=== PATIENT | female | born 1955 | race Caucasian/White ===

== ENCOUNTER → 2017-04-14 | Outpatient (CLI) | payer MEDICARE, BC ==
[~2017-04-14] MED LIST: ALLEGRA; ALLEGRA ALLERG180 MG PO; ASPIRIN81 M2 PO; CALCIUM 500 + D1 TAB PO; CALCIUM 600 +1 EAC1 PO; CALCIUM500 M1 PO; CARAFATE1 GM; CRESTOR5 MG PO; DARVOCET-N 1001 TAB PO; DICLOFENAC; DYMISTA NASAL S23 GM; ESTRACE42.5 GM VAG; FLONASE16 GM; GAMMAGARD; GAS-X125 MG PO; LIDOCAINE1 EACH; MESTINON; MESTINON180 MG PO; MESTINON60 MG/5 ML PO; MINIVELLE1 EAC3 TD; MULTI-VITAMIN1 TAB; MULTIPLE VITAM1 EAC1 PO; MYLANTA125 MG PO; OYSTER CALCIUM500 MG; PLAQUENIL200 MG; PLAQUENIL200 MG PO; PROBIOTIC1 EAC3 PO; PROBIOTIC1 EAC5 PO; PROTONIX PO; PROVENTIL; PULMICORT0.25 MG/2 INH; PULMICORT180 MCG/A1 INH; PULMICORT200 MCG/AE; PULMICORT200 MCG/AE INH; PYRIDOSTIGMINE180 MG PO; PYRIDOSTIGMINE60 M2 PO; RESTASIS1 EACH; SINGULAIR PO; TYLENOL PM; VESICARE; VESICARE5 MG PO; VITAMIN D PO; VITAMIN D250000 UNIT PO; VITAMIN D50000 UNIT PO; VOLTAREN75 MG PO
== END | disposition home or self-care (01) ==
LOC: CSSDAY 07:39
DX: G70.00 Myasthenia gravis without (acute) exacerbation (principal); Z79.899 Other long term (current) drug therapy
CPT/HCPCS: 96365; 96366; J1566; J1569; J1642

== ENCOUNTER → 2017-04-28 | Outpatient (CLI) | payer MEDICARE, BC ==
[2017-04-28 11:41] LABS: ALBUMIN SERUM 3.7 g/dL (3.5-5.0); BILIRUBIN,TOTAL 0.8 mg/dL (0.2-2.0); BUN/CREATININE RATIO 36.66; CALCIUM SERUM 8.6 mg/dL (8.4-10.2); CREATININE SERUM 0.6 mg/dL (0.6-1.4); GLOM FILT RATE Estimated 97.7 mL/min (>60); POTASSIUM 3.9 mmol/L (3.5-5.1); PROTEIN TOTAL SERUM 8.3 g/dL (6.0-8.3)
== END | disposition home or self-care (01) ==
LOC: CSSDAY 08:01
PROVIDERS: Psychiatry & Neurology Neurology
DX: G70.00 Myasthenia gravis without (acute) exacerbation (principal); Z79.899 Other long term (current) drug therapy
CPT/HCPCS: 80053; 96365; 96366; J1569; J1642

== ENCOUNTER → 2017-05-09 | Outpatient (CLI) | payer MEDICARE, BC ==
[2017-05-09 09:17] LABS: ALBUMIN SERUM 3.9 g/dL (3.5-5.0); BILIRUBIN,TOTAL 0.6 mg/dL (0.2-2.0); BUN/CREATININE RATIO 25.55; CALCIUM SERUM 8.8 mg/dL (8.4-10.2); CREATININE SERUM 0.9 mg/dL (0.6-1.4); GLOM FILT RATE Estimated 68.6 mL/min (>60); POTASSIUM 4.1 mmol/L (3.5-5.1); PROTEIN TOTAL SERUM 7.3 g/dL (6.0-8.3)
== END | disposition home or self-care (01) ==
LOC: CSSDAY 07:51
PROVIDERS: Psychiatry & Neurology Neurology
DX: G70.00 Myasthenia gravis without (acute) exacerbation (principal); Z79.899 Other long term (current) drug therapy
CPT/HCPCS: 80053; 96365; 96366; J1569; J1642

== ENCOUNTER → 2017-05-23 | Outpatient (CLI) | payer MEDICARE, BC | END | disposition home or self-care (01) | LOC: CSSDAY 07:44 | DX: G70.00 Myasthenia gravis without (acute) exacerbation (principal); Z79.899 Other long term (current) drug therapy | CPT/HCPCS: 96365; 96366; J1569; J1642 ==

== ENCOUNTER → 2017-06-06 | Outpatient (CLI) | payer MEDICARE, BC ==
[2017-06-06 09:12] LABS: CALCIUM SERUM 8.8 mg/dL (8.4-10.2); CREATININE SERUM 0.8 mg/dL (0.6-1.4); GLOM FILT RATE Estimated 79.1 mL/min (>60); POTASSIUM 3.8 mmol/L (3.5-5.1)
== END | disposition home or self-care (01) ==
LOC: CSSDAY 07:43
PROVIDERS: Psychiatry & Neurology Neurology
DX: G70.00 Myasthenia gravis without (acute) exacerbation (principal)
CPT/HCPCS: 80048; 96365; 96366; J1569; J1642

== ENCOUNTER → 2017-06-21 | Outpatient (CLI) | payer MEDICARE, BC | END | disposition home or self-care (01) | LOC: CSSDAY 07:50 | DX: G70.00 Myasthenia gravis without (acute) exacerbation (principal) | CPT/HCPCS: 96365; 96366; J1569; J1642 ==

== ENCOUNTER → 2017-07-04 | Outpatient (CLI) | payer MEDICARE, BC ==
[2017-07-04 10:14] LABS: BILIRUBIN,TOTAL 0.7 mg/dL (0.2-2.0); BUN/CREATININE RATIO 34.28; CALCIUM SERUM 8.6 mg/dL (8.4-10.2); CREATININE SERUM 0.7 mg/dL (0.6-1.4); GLOM FILT RATE Estimated 92.9 mL/min (>60); POTASSIUM 3.9 mmol/L (3.5-5.1); PROTEIN TOTAL SERUM 7.3 g/dL (6.0-8.3)
== END | disposition home or self-care (01) ==
LOC: CSSDAY 08:00
PROVIDERS: Psychiatry & Neurology Neurology
DX: G70.00 Myasthenia gravis without (acute) exacerbation (principal); Z79.899 Other long term (current) drug therapy
CPT/HCPCS: 80053; 96365; 96366; J1569; J1642